=== PATIENT | female | born 1960 | race Caucasian/White ===

== ENCOUNTER 2017-08-02 11:13 | Emergency (ER) | payer MEDICAID, BC ==
[2017-08-02 17:26] LABS: ADD MAN DIFF? NO
[2017-08-02 17:27] LABS: BASOPHILS % 0.5 % (0.0-2.0); EOSINOPHILS # 0.2 10^3/ul (0.0-0.5); EOSINOPHILS % 2.1 % (0.0-7.0); HEMATOCRIT 39.3 % (37.0-47.0); LYMPHOCYTES # 2.8 10^3/ul (0.8-2.9); LYMPHOCYTES % 37.3 % (15.0-51.0); MEAN CORPUSCULAR HEMOGLOBIN 29.5 pg (29.0-33.0); MEAN CORPUSCULAR HGB CONC 33.1 g/dl (32.0-37.0); MEAN CORPUSCULAR VOLUME 89.3 fl (82.0-101.0); MEAN PLATELET VOLUME 12.1 fl (7.4-10.4); MONOCYTE # 0.7 10^3/ul (0.3-0.9); MONOCYTES % 9.2 % (0.0-11.0); NEUTROPHIL # 3.8 10^3/ul (1.6-7.5); NEUTROPHILS % 50.8 % (39.0-77.0); PLATELET COUNT 313 10^3/UL (140-415); RED CELL DISTRIBUTION WIDTH 13.4 % (11.5-14.5)
[2017-08-02 17:27] LABS: WHITE BLOOD COUNT 7.5 10^3/ul (4.8-10.8)
[2017-08-02 17:52] LABS: ALANINE AMINOTRANSFERASE 60 IU/L (13-69); ALBUMIN 4.5 g/dl (3.3-4.9); ALKALINE PHOSPHATASE 134 IU/L (42-121); ANION GAP 16 (8-16); ASPARTATE AMINO TRANSFERASE 63 IU/L (15-46); BILIRUBIN,INDIRECT 0.2 mg/dl (0-1.1); BILIRUBIN,TOTAL 0.2 mg/dl (0.2-1.3); BLOOD UREA NITROGEN 19 mg/dl (7-20); CALCIUM 9.5 mg/dl (8.4-10.2); CARBON DIOXIDE 28 mmol/L (21-31); CHLORIDE 104 mmol/L (97-110); CREATININE 0.53 mg/dl (0.44-1.00); GLUCOSE 89 mg/dl (70-220); LIPASE 179 U/L (23-300); SODIUM 144 mmol/L (135-144)
[2017-08-02] MEDS ORDERED: IOHEXOL 300MG/ML 150 ML BTL (18:29)
[2017-08-02] MEDS ORDERED: SOD CHLORIDE 0.9% 100 ML (18:29)
[2017-08-02] MEDS ORDERED: HYDROCODONE/APAP (10/325) TAB PO (20:00)
== END 2017-08-02 20:34 | disposition home or self-care (01) ==
LOC: E/R 11:13
DX: K29.70 Gastritis, unspecified, without bleeding (principal); I10 Essential (primary) hypertension; Z79.82 Long term (current) use of aspirin
CPT/HCPCS: 36415; 74177; 80053; 83690; 85025; 99284-25

== ENCOUNTER 2018-05-30 17:43 | Emergency (ER) | payer BC ==
[2018-05-30 19:56] LABS: URINE BLOOD (Dip) POC 2+ (NEGATIVE); URINE GLUCOSE (Dip) POC Negative (NEGATIVE); URINE KETONES (Dip) POC Negative (NEGATIVE); URINE LEUKOCYTE EST (Dip) POC Negative (NEGATIVE); URINE NITRITE (Dip) POC Negative (NEGATIVE); URINE TOTAL PROTEIN POC Negative (NEGATIVE)
[2018-05-30 19:59] LABS: ADD MAN DIFF? NO
[2018-05-30 20:25] LABS: ALANINE AMINOTRANSFERASE 94 IU/L (13-69); ALBUMIN 4.7 g/dl (3.3-4.9); ALKALINE PHOSPHATASE 203 IU/L (42-121); ANION GAP 13 (5-13); ASPARTATE AMINO TRANSFERASE 94 IU/L (15-46); BILIRUBIN,INDIRECT 0.1 mg/dl (0-1.1); BILIRUBIN,TOTAL 0.1 mg/dl (0.2-1.3); BLOOD UREA NITROGEN 9 mg/dl (7-20); CALCIUM 9.9 mg/dl (8.4-10.2); CARBON DIOXIDE 23 mmol/L (21-31); CHLORIDE 105 mmol/L (97-110); CREATININE 0.41 mg/dl (0.44-1.00); Estimated GFR > 60 mL/min (>60); GLUCOSE 103 mg/dl (70-220); LIPASE 159 U/L (23-300); SODIUM 141 mmol/L (135-144); TOTAL PROTEIN 9.4 g/dl (6.1-8.1)
[2018-05-30 20:59] LABS: BASOPHILS % 0.5 % (0.0-2.0); EOSINOPHILS # 0.2 10^3/ul (0.0-0.5); EOSINOPHILS % 2.7 % (0.0-7.0); HEMATOCRIT 39.7 % (37.0-47.0); HEMOGLOBIN 12.8 g/dl (12.0-16.0); LYMPHOCYTES # 2.4 10^3/ul (0.8-2.9); LYMPHOCYTES % 40.4 % (15.0-51.0); MEAN CORPUSCULAR HEMOGLOBIN 28.4 pg (29.0-33.0); MEAN CORPUSCULAR HGB CONC 32.2 g/dl (32.0-37.0); MEAN CORPUSCULAR VOLUME 88.2 fl (82.0-101.0); MEAN PLATELET VOLUME 11.3 fl (7.4-10.4); MONOCYTE # 0.7 10^3/ul (0.3-0.9); MONOCYTES % 11.5 % (0.0-11.0); NEUTROPHIL # 2.6 10^3/ul (1.6-7.5); NEUTROPHILS % 44.7 % (39.0-77.0); PLATELET COUNT 308 10^3/UL (140-415); RED CELL DISTRIBUTION WIDTH 13.4 % (11.5-14.5)
[2018-05-30 20:59] LABS: WHITE BLOOD COUNT 5.8 10^3/ul (4.8-10.8)
[2018-05-30] MEDS: PANTOPRAZOLE 40 MG INJ IV (22:39)
[2018-05-30] MEDS: KETOROLAC 30 MG INJ IV (22:40)
== END 2018-05-30 22:47 | disposition home or self-care (01) ==
LOC: E/R 22:47
DX: R10.13 Epigastric pain (principal); R31.9 Hematuria, unspecified; R94.5 Abnormal results of liver function studies; I10 Essential (primary) hypertension; Z79.82 Long term (current) use of aspirin
CPT/HCPCS: 36415; 76705; 80053; 81003; 81025; 83605; 83690; 85025; 93005; 96374; 96375; 99285-25

== ENCOUNTER 2018-08-22 12:29 | Emergency (ER) | payer BC ==
[2018-08-22] MEDS: NICARDipine HCL 30 MG CAPSULE PO (15:00)
== END 2018-08-22 16:17 | disposition home or self-care (01) ==
LOC: E/R 12:29
DX: I10 Essential (primary) hypertension (principal); Z79.82 Long term (current) use of aspirin
CPT/HCPCS: 99283

== ENCOUNTER 2018-09-12 06:25 | Day surgery (SDC) | payer BC ==
[2018-09-12] MEDS ORDERED: FENTAnyl 50 MCG/ML VIAL (09:22)
[2018-09-12] MEDS ORDERED: MIDAZOLAM 1 MG/ML 2 ML INJ ×2 (09:22)
== END 2018-09-12 11:02 | disposition home or self-care (01) ==
LOC: GIL 06:25
DX: Z12.11 Encounter for screening for malignant neoplasm of colon (principal); K64.8 Other hemorrhoids; K21.9 Gastro-esophageal reflux disease without esophagitis; I10 Essential (primary) hypertension
CPT/HCPCS: 43239; 88305; 88312

== ENCOUNTER 2018-10-13 08:43 | Emergency (ER) | payer BC ==
[2018-10-13] MEDS: SILVER NITRATE SWAB TOP (10:06)
== END 2018-10-13 10:44 | disposition home or self-care (01) ==
LOC: FTE 08:43
DX: S61.214A Laceration without foreign body of right ring finger without damage to nail, initial encounter (principal); I10 Essential (primary) hypertension; W26.9XXA Contact with unspecified sharp object(s), initial encounter; Y92.9 Unspecified place or not applicable; Z79.82 Long term (current) use of aspirin
CPT/HCPCS: 99282

== ENCOUNTER 2018-10-15 08:33 | Emergency (ER) | payer BC | END 2018-10-15 09:27 | disposition home or self-care (01) | LOC: FTE 09:27 | DX: L98.0 Pyogenic granuloma (principal); I10 Essential (primary) hypertension; Z79.82 Long term (current) use of aspirin | CPT/HCPCS: 99281 ==

== ENCOUNTER 2018-10-21 21:07 | Emergency (ER) | payer BC ==
[2018-10-21] MEDS: LIDOCAINE 1% (MPF) 5 ML VIAL INFIL (23:48)
[2018-10-22] MEDS: ACETAMINOPHEN 500 MG TAB PO (03:36)
[2018-10-22] MEDS: IBUPROFEN 600 MG TAB PO (03:37)
[2018-10-22] MEDS: CEPHALEXIN 500 MG CAP PO (03:37)
== END 2018-10-22 04:25 | disposition home or self-care (01) ==
LOC: FTE 10-22 04:25
DX: S69.91XA Unspecified injury of right wrist, hand and finger(s), initial encounter (principal); I10 Essential (primary) hypertension; L03.011 Cellulitis of right finger; X58.XXXA Exposure to other specified factors, initial encounter; Y92.9 Unspecified place or not applicable; Z79.82 Long term (current) use of aspirin
CPT/HCPCS: 64450; 73140; 99283-25

== ENCOUNTER 2018-10-24 09:36 | Emergency (ER) | payer BC | END 2018-10-24 11:57 | disposition home or self-care (01) | LOC: FTE 09:36 | DX: L98.0 Pyogenic granuloma (principal); I10 Essential (primary) hypertension; Z79.82 Long term (current) use of aspirin | CPT/HCPCS: 99282 ==